=== PATIENT | female | born 1980 | race Caucasian/White ===

== ENCOUNTER 2016-04-18 09:49 | Inpatient (IN) | payer SELFPAY ==
[~2016-04-18] VITALS: Ht 167.6 cm; Wt 91.8 kg
[~2016-04-18 09:49] MED LIST: PREN1TAB12 PO; PREN1TAB52 PO
[2016-04-18] MEDS ORDERED: IBUP-1546 PO (09:55)
[2016-04-18 12:29] LABS: HEMOGLOBIN 13.5 g/dL (12.0-16.0); MEAN CORPUSCULAR HEMOGLOBIN 31.5 pg (26.0-34.0); MEAN CORPUSCULAR HGB CONC 34.6 G/dL (31.0-37.0); MEAN CORPUSCULAR VOLUME 91 fL (80-100); PLATELET COUNT (AUTO) 297 K/uL (150-450); RED BLOOD CELL COUNT(AUTO) 4.28 MIL/uL (4.00-5.20); RED CELL DISTRIBUTION WIDTH 12.6 % (11.5-14.5); WHITE BLOOD COUNT (AUTO) 11.6 K/uL (4.5-11.0)
[2016-04-18 12:33] LABS: ANION GAP 4 mmol/L (8-16); CALCIUM, TOTAL 8.8 mg/dL (8.8-10.5); CARBON DIOXIDE 29 mmol/L (22-29); CHLORIDE 102 mmol/L (98-107); CREATININE 0.52 mg/dL (0.60-1.30); GLOMERULAR FILTR. RATE CALC > 60 mL/min (>60); POTASSIUM 4.6 mmol/L (3.5-5.1); SODIUM SERUM 135 mmol/L (136-145); UREA NITROGEN, BLOOD 8 mg/dL (7-18)
[2016-04-18 12:40] LABS: ALANINE AMINOTRANSFERASE 28 U/L (12-78); ALBUMIN 3.8 g/dL (3.4-5.0); ASPARTATE AMINOTRANSFERASE 21 U/L (15-37); BILIRUBIN,TOTAL 0.3 mg/dL (0.1-1.0); TOTAL PROTEIN, SERUM 7.7 g/dL (6.4-8.2)
[2016-04-18 12:51] LABS: BAND NEUTROPHILS % (MANUAL) 13 % (1-5); LYMPHOCYTES % (MANUAL) 9 % (22-44); RBC MORPHOLOGY COMMENT NORMAL RBC MORPH; TOTAL CELLS COUNTED 100
[2016-04-18] MEDS ORDERED: MORPHINE SULFATE 4 MG/ML SYRINGE IVP ONE (13:15)
[2016-04-18] MEDS ORDERED: ONDANSETRON HCL 4 MG/2 ML VIAL IVP ONE (13:15)
[2016-04-18] MEDS ORDERED: ACETAMINOPHEN 325 MG TABLET PO PRN (13:45)
[2016-04-18] MEDS ORDERED: ZOLPIDEM TARTRATE 5 MG TABLET PO PRN (13:45)
[2016-04-18] MEDS ORDERED: ONDANSETRON HCL 4 MG/2 ML VIAL IVP PRN (13:45)
[2016-04-18 13:48] LABS: APPEARANCE,URINE CLEAR (CLEAR); GLUCOSE, URINE (UA) NEGATIVE (NEGATIVE); KETONES,URINE 15 mg/dL (NEGATIVE); LEUKOCYTE ESTERASE ,URINE NEGATIVE (NEGATIVE); OCCULT BLOOD,URINE NEGATIVE (NEGATIVE); PROTEIN,URINE NEGATIVE (NEGATIVE)
[2016-04-18 13:54] LABS: RBC,URINE None Seen /HPF (0-2); SQUAMOUS EPITHELIAL CELL,UR Few /LPF (None Seen); WBC,URINE 0-2 /HPF (0-5)
[2016-04-18] MEDS: HEPARIN SODIUM,PORCINE 5,000 UNITS/ML VIAL SQ SCH ×2 (14:37→23:27)
[2016-04-18] MEDS ORDERED: CeFAZolin 2 GM/DEXTROSE 50 ML IV ONE (14:45)
[2016-04-18 16:02] VITALS: BP 113/75
[2016-04-18 20:08] VITALS: BP 108/70
[2016-04-18] MEDS: OxyCODONE HCL/ACETAMINOPHEN 5-325 MG TABLET PO PRN (20:29)
[2016-04-18 23:39] VITALS: BP 114/71
[2016-04-19] MEDS: OxyCODONE HCL/ACETAMINOPHEN 5-325 MG TABLET PO PRN (00:30)
[2016-04-19] MEDS ORDERED: LIDOCAINE HCL/PF 2% 5 ML VIAL IM ONE (00:59)
[2016-04-19] MEDS ORDERED: DEXAMETHASONE SOD PHOS 4 MG/ML VIAL IVP ONE (00:59)
[2016-04-19] MEDS ORDERED: GLYCOPYRROLATE 0.2 MG/ML VIAL IM ONE (00:59)
[2016-04-19] MEDS ORDERED: NEOSTIGMINE METHYLSULFATE 1 MG/ML 10 ML VIAL IVP ONE (00:59)
[2016-04-19] MEDS ORDERED: MIDAZOLAM HCL 2 MG/2 ML VIAL IVP ONE (00:59)
[2016-04-19] MEDS ORDERED: ROCURONIUM BROMIDE 10 MG/ML 5 ML VIAL IVP ONE (00:59)
[2016-04-19] MEDS ORDERED: FentaNYL CITRATE-PF 250 MCG/5 ML VIAL IVP ONE (00:59)
[2016-04-19] MEDS ORDERED: METOCLOPRAMIDE HCL 5 MG/ML 2 ML VIAL IVP ONE (00:59)
[2016-04-19] MEDS ORDERED: PROPOFOL 1% 20 ML VIAL IVP ONE (00:59)
[2016-04-19] MEDS ORDERED: HYDROmorphone 2 MG/ML SYRINGE IVP ONE ×2 (00:59→01:45)
[2016-04-19] MEDS ORDERED: ONDANSETRON HCL 4 MG/2 ML VIAL IVP ONE (00:59)
[2016-04-19 04:59] VITALS: BP 98/58
[2016-04-19 07:15] VITALS: BP 104/73
[2016-04-19] MEDS: PANTOPRAZOLE SODIUM 40 MG DR TABLET PO SCH (09:34)
[2016-04-19] MEDS: HEPARIN SODIUM,PORCINE 5,000 UNITS/ML VIAL SQ SCH (09:34)
[2016-04-19] MEDS: HYDROmorphone 2 MG/ML SYRINGE IVP PRN (11:04)
[2016-04-19 11:05] VITALS: BP 108/60
[2016-04-19 14:55] VITALS: BP 130/68
[2016-04-19] MEDS ORDERED: RINGERS SOLUTION,LACTATED 1,000 ML IV ONE (15:30)
[2016-04-19] MEDS: BUPIVACAINE 0.25%/EPI 1:200,000/PF 10 ML VIAL ONE ×2 (16:12→18:02)
[2016-04-19] MEDS ORDERED: MEPERIDINE-PF 25 MG/ML SYRINGE IVP PRN (16:15)
[2016-04-19] MEDS ORDERED: HYDROmorphone 2 MG/ML SYRINGE IVP PRN (16:15)
[2016-04-19] MEDS ORDERED: FentaNYL CITRATE-PF 100 MCG/2 ML VIAL IVP PRN (16:15)
[2016-04-19] MEDS ORDERED: HYDROmorphone 2 MG/ML SYRINGE ONE (19:05)
[2016-04-19 20:12] VITALS: BP 127/79
[2016-04-19] MEDS ORDERED: SODIUM CHLORIDE 0.9% 500 ML IV ONE (22:40)
[2016-04-19] MEDS: CeFAZolin 1 GM/DEXTROSE 50 ML IV SCH (23:16)
[2016-04-19 23:54] VITALS: BP 117/61
[2016-04-20] MEDS: HYDROmorphone 2 MG/ML SYRINGE IVP PRN ×3 (01:39→21:16)
[2016-04-20 04:37] VITALS: BP 100/54
[2016-04-20] MEDS: OxyCODONE HCL/ACETAMINOPHEN 5-325 MG TABLET PO PRN ×2 (06:14→17:19)
[2016-04-20] MEDS: OXYGEN THERAPY IH SCH ×2 (08:00→20:00)
[2016-04-20] MEDS: PANTOPRAZOLE SODIUM 40 MG DR TABLET PO SCH (08:04)
[2016-04-20] MEDS: ENOXAPARIN SODIUM 30 MG/0.3 ML PF SYRINGE SQ SCH ×2 (08:04→20:59)
[2016-04-20] MEDS: CeFAZolin 1 GM/DEXTROSE 50 ML IV SCH (08:04)
[2016-04-20 08:21] VITALS: BP 114/58
[2016-04-20 11:32] VITALS: BP 117/63
[2016-04-20 15:10] VITALS: BP 117/65
[2016-04-20 19:16] VITALS: BP 118/70
[2016-04-21 00:03] VITALS: BP 115/67
[2016-04-21] MEDS: HYDROmorphone 2 MG/ML SYRINGE IVP PRN ×2 (00:42→11:09)
[2016-04-21 04:26] VITALS: BP 111/73
[2016-04-21] MEDS: OxyCODONE HCL/ACETAMINOPHEN 5-325 MG TABLET PO PRN (04:30)
[2016-04-21 04:36] VITALS: BP 113/60
[2016-04-21 07:28] VITALS: BP 126/75
[2016-04-21] MEDS: OXYGEN THERAPY IH SCH (08:00)
[2016-04-21] MEDS: ENOXAPARIN SODIUM 30 MG/0.3 ML PF SYRINGE SQ SCH (08:21)
[2016-04-21] MEDS: PANTOPRAZOLE SODIUM 40 MG DR TABLET PO SCH (08:23)
[2016-04-21] MEDS ORDERED: PERCT PO (09:22)
[2016-04-21] MEDS ORDERED: ENOX40DI9 SQ (10:43)
[2016-04-21 11:59] VITALS: BP 137/72
== END 2016-04-21 14:00 | disposition home or self-care (01) | DRG 493 ==
LOC: EDBD 09:51 → EMS 09:51 → 6N 13:53
PROVIDERS: ADMIT Hospitalist; ATTEND Hospitalist
PROC: 0QHG06Z Insertion of Intramedullary Internal Fixation Device into Right Tibia, Open Approach (ICD-10-PCS; 2016-04-19)
PROC: 0QSJ04Z Reposition Right Fibula with Internal Fixation Device, Open Approach (ICD-10-PCS; principal; 2016-04-19 16:07)
DX: S82.231A Displaced oblique fracture of shaft of right tibia, initial encounter for closed fracture (principal); E87.1 Hypo-osmolality and hyponatremia; S82.451A Displaced comminuted fracture of shaft of right fibula, initial encounter for closed fracture; W18.39XA Other fall on same level, initial encounter; Y93.89 Activity, other specified; Y92.89 Other specified places as the place of occurrence of the external cause; Y99.8 Other external cause status
CPT/HCPCS: 29515; 73700; 96365; 96374; 96375; 97162; 99285; C1713; G0238; J0690; J1100; J1170; J1644; J1650; J2250; J2270; J2405; J2704; J2765; J3010; J3490; J7040; J7120

== ENCOUNTER → 2016-06-05 | Outpatient (CLI) | payer OTHER ==
[~2016-06-05] MED LIST changes: +ENOX40DI9 SQ; +PERCT PO; -PREN1TAB12 PO; -PREN1TAB52 PO
== END | disposition home or self-care (01) ==
LOC: RADMN 09:44
PROVIDERS: ATTEND Orthopaedic Surgery
DX: Z51.89 Encounter for other specified aftercare (principal); M25.571 Pain in right ankle and joints of right foot

== ENCOUNTER → 2016-07-24 | Outpatient (CLI) | payer OTHER | END | disposition home or self-care (01) | LOC: RADPV 08:57 | PROVIDERS: ATTEND Orthopaedic Surgery | DX: S82.231D Displaced oblique fracture of shaft of right tibia, subsequent encounter for closed fracture with routine healing (principal); S82.431D Displaced oblique fracture of shaft of right fibula, subsequent encounter for closed fracture with routine healing; X58.XXXD Exposure to other specified factors, subsequent encounter ==

== ENCOUNTER → 2016-09-11 | Outpatient (CLI) | payer OTHER | END | disposition home or self-care (01) | LOC: RADPV 08:21 | PROVIDERS: ATTEND Orthopaedic Surgery | DX: S82.301D Unspecified fracture of lower end of right tibia, subsequent encounter for closed fracture with routine healing (principal); S82.831D Other fracture of upper and lower end of right fibula, subsequent encounter for closed fracture with routine healing; X58.XXXD Exposure to other specified factors, subsequent encounter ==